=== PATIENT | male | born 1965 | race Caucasian/White ===

== ENCOUNTER 2021-07-16 07:55 | Day surgery (SDC) | payer OTHER ==
[2021-07-16] MEDS: Ringers Lactate 1,000 ML IV ONE ×2 (08:40→09:03)
[2021-07-16] MEDS ORDERED: CEFAZOLIN/NS 1gm 1 GM/50 ML BAG ONE (09:03)
[2021-07-16] MEDS ORDERED: MIDAZOLAM HCL 2 MG/2 ML INJ ONE (09:11)
[2021-07-16] MEDS ORDERED: FENTANYL CITR 100 MCG/2 ML ONE (09:11)
[2021-07-16] MEDS ORDERED: LIDOCAINE 2% MPF 5 ML VIAL ONE (09:12)
[2021-07-16] MEDS ORDERED: propofoL 200 MG/20 ML VIAL IV ONE ×2 (09:12→09:56)
[2021-07-16] MEDS ORDERED: ROCURONIUM 50 MG/5 ML VIAL IV ONE (09:14)
[2021-07-16] MEDS ORDERED: BUPIVACAINE 0.25% PF 30 ML VIAL ONE (09:19)
[2021-07-16] MEDS ORDERED: dexAMETHasone 10 MG/ML VIAL ONE (09:57)
[2021-07-16] MEDS ORDERED: NEOSTIGMINE 1 MG/ML -5 ML ONE (10:20)
[2021-07-16] MEDS ORDERED: GLYCOPYRROLATE 0.2 MG/ML SYR ONE ×2 (10:21)
[2021-07-16] MEDS ORDERED: EPHEDRINE SULF 50 MG/ML VIAL ONE (10:27)
[2021-07-16] MEDS ORDERED: Ringers Lactate 1,000 ML IV ONE (11:24)
--- NOTE | 2021-07-16 11:26 | P.OP ---
Preoperative diagnosis: LEFT inguinal hernia Postoperative diagnosis: Incarcerated LEFT inguinal hernia Primary procedure: Open LEFT inguinal hernia repair Secondary procedure: Reduction of Sigmoid colon, adhesiolysis Anesthesia: GETA + Local Estimated blood loss: <10cc Specimen: hernia sack and contents Findings: Sigmoid colon partially entrapped, ext oblique thin, floor weak Complications: None Implants: Bard Perfix plug and patch - large Transferred to: Recovery Room Condition: Good
[2021-07-16] MEDS ORDERED: KETOROLAC 30 MG/ML INJ ONE (11:52)
[2021-07-16] MEDS ORDERED: ONDANSETRON 4 MG/2 ML VIAL ONE (11:52)
[2021-07-16] MEDS ORDERED: MEPERIDINE HCL 50 MG/ML ONE (12:02)
[2021-07-16] MEDS ORDERED: HYDROCODONE/APAP 10/325 TAB ONE (14:01)
[2021-07-16 14:28] VITALS: TEMP 97
[2021-07-16 14:30] VITALS: BP 134/74; O2SAT 100
--- NOTE | 2021-07-16 21:57 | OP ---
Date of Procedure: 07/16/2021 Surgeon: Bay Muñoz MD, Preoperative Diagnosis: Left inguinal hernia. Postoperative Diagnosis: Incarcerated left inguinal hernia. Procedures: 1.Open left inguinal hernia repair with mesh. 2.Reduction of sigmoid colon. 3.Adhesiolysis. Anesthesia: General endotracheal plus local with 0.25% Marcaine. Estimated Blood Loss: Less than 10 cc. Specimens: Hernia sac and contents. Findings: 1.Sigmoid colon was partially entrapped in a [place] type hernia in the left inguinal hernia. Signi ficant scar tissue was evident from the sigmoid colon to the hernia sac. 2.The external oblique aponeurosis was very thin and frail. 3.Floor of the inguinal canal was quite weak as well and alveolar in appearance with thin fibrous ti ssue. Complications: None. Implants: Bard PerFix large plug and patch hernia repair system. Disposition: The patient was transferred to recovery room in good condition. Procedure In Detail: After informed consent was obtained, the patient was brought to the operating r oom prepped and draped in the usual sterile fashion. After adequate anesthesia achieved, an inguinal incision was made above the left inguinal crease with 15 blade. Dissection was continued down throu gh Camper fat and Tammy fascia to expose the external oblique aponeurosis was found to be quite thin and alveolar at this point. This is opened sharply with a blade and opened in its entirety with Met zenbaum scissors. At this point, the spermatic cord structures were encircled with a [place] drain. A very large hernia was appreciated on the medial aspect consistent with indirect inguinal hernia. Dissection continued circumferentially to dissect the sac off the spermatic cord structures. The ext ernal oblique aponeurosis as noted was quite thin and alveolar as well as the floor of the inguinal c anal was quite thin and friable. After dissecting and opened the hernia sac sharply with Metzenbaum scissors, I had noted that the sigmoid colon was partially entrapped within this significant scar tis rosa was evident requiring adhesiolysis. After reducing the hernia sac and contents to the surgical f ield, I used a combination of Metzenbaum scissors as well as electrocautery to dissect the sigmoid co oliva from the hernia sac. I then examined the colon, found to be intact without any injury. I then p laced back in the preperitoneal space and performed a finger sweep to ensure a good landing zone was evident for the mesh placement. At this point, the hernia sac and contents were ligated at this poin t while the sigmoid colon remained protected in the peritoneal cavity with a sponge on a stick. At t his point, the hernia sac contents were sent off for pathologic examination. I then sized a large Pe rFix plug and patch hernia repair system and using 0 PDS suture circumferentially around the deep ing uinal ring, I placed this in the preperitoneal space and secured it circumferentially around with the outer leaflets of the hernia patch system. At this point, the mesh was unfurled and found to be in good anatomic position. I then closed the residual small hernia sac over the top of the mesh plug wi th a running 3-0 Vicryl suture with good approximation of tissues. I then sized the patch appropriat tino and placed it under the spermatic cord structures to reconstitute and protect the inguinal ring r epair. I secured to the pubic tubercle medially with a 0 PDS suture and on the medial and lateral sh elving edges of the internal oblique aponeurosis and the underside of the inguinal ligament using the 2-0 PDS suture circumferentially around. I then closed the residual alveolar external oblique apone urosis using a 3-0 Vicryl suture, but it was quite thin and friable with multiple gaps in opening in this. As such, I closed Camper fat and Tammy fascia on block over the top using the same set 3-0 Vi cryl suture in a running fashion. Deep dermal tissues were closed with 3-0 Vicryl suture and skin wa s closed with 4-0 Monocryl in a running fashion. Dermabond was placed over top. The patient tolerat ed the procedure well without evidence any complications, transferred to PACU in good condition. All counts were correct at the end of the case . TK/MODL Voice ID: [id number] Report ID: [id number]
== END 2021-07-16 13:50 | disposition home or self-care (01) ==
LOC: OR 07:55
PROVIDERS: ATTEND Surgery
PROC: 0DNN0ZZ Release Sigmoid Colon, Open Approach (ICD-10-PCS; 2021-07-16)
PROC: 0YU60JZ Supplement Left Inguinal Region with Synthetic Substitute, Open Approach (ICD-10-PCS; principal; 2021-07-16 09:30)
DX: K40.30 Unilateral inguinal hernia, with obstruction, without gangrene, not specified as recurrent (principal); Z20.822 Contact with and (suspected) exposure to COVID-19
CPT/HCPCS: 88302; 49507; 44005; U0003; J2704 ×2; J2250; J3010; J1100; J2175; J2710; J0690; J7120 ×2; J2405